=== PATIENT | male | born 1950 | race Caucasian/White ===

== ENCOUNTER 2016-12-07 21:18 | Observation (INO) | payer MEDICARE, OTHER ==
--- NOTE | ~2016-12-07 | CN ---
Consultation Report [address] [place]. [address] NAME: CURLY SHETTY : 46 STATUS : ADM Jeanie PAT#: [id number] AGE: 66 ADM/REG DATE : 12/07/16 MR#: [id number] REPORT SERV DATE: 12/08/16 DICTATED BY: JOHN ESTRADA DATE: 12/08/16 REPORT STATUS : Draft TRANSCRIBED BY: MODL DATE: 12/08/16 CARDIOLOGY CONSULTATION DATE OF CONSULTATION: HISTORY OF PRESENT ILLNESS: The patient is a 66-year-old white male with a history of four- vessel bypass surgery [address] Bran Arechiga. The patient now presents with fleeting anterior chest pain, worsened by movement of his torso. Apparently, he had onset of this discomfort after power washing house yesterday. He has no nausea, vomiting, or diaphoresis. PAST MEDICAL HISTORY: Remarkable for coronary artery disease, hyperlipidemia, essential hypertension, type 2 diabetes, and COPD. SOCIAL HISTORY: The patient continues to smoke, half pack of cigarettes a day. FAMILY HISTORY: Positive for coronary disease. REVIEW OF SYSTEMS: The patient has cough, wheeze, sputum production, vomiting, diarrhea, or dysuria. PHYSICAL EXAMINATION: GENERAL: The patient is in no acute distress. HEENT: Unremarkable. NECK: Shows no jugular venous distention with good carotid upstroke. CHEST: Clear. CARDIOVASCULAR: The PMI is not displaced. S1 is normal. S2 is narrowly split. No gallop is present. ABDOMEN: Soft, nontender with normal bowel sounds. EXTREMITIES: Show no cyanosis, clubbing, or edema. SKIN: Warm and dry with no pallor or icterus. NEURO/PSYCH: The patient is oriented x3 with appropriate affect. IMAGING: EKG shows sinus rhythm, right bundle-branch block, and a probable inferior scar. Troponin is negative x2. IMPRESSION: 1. Atypical chest pain in the patient with known coronary artery disease. 2. History of coronary artery bypass surgery with multiple risk factors. 3. Type 2 diabetes. 4. Hypertension. 5. Hyperlipidemia. 6. Tobacco abuse. Consultation Report [address] [place]. [address] NAME: CURLY SHETTY : 46 STATUS : ADM Jeanie PAT#: [id number] AGE: 66 ADM/REG DATE : 12/07/16 MR#: [id number] REPORT SERV DATE: 12/08/16 DICTATED BY: JOHN ESTRADA DATE: 12/08/16 REPORT STATUS : Draft TRANSCRIBED BY: YOKO DATE: 12/08/16 RECOMMENDATION: The patient is refusing to stay for nuclear scan as an inpatient. We will arrange an outpatient nuclear perfusion scan at [facility] (the patient lives in [place] and wishes to have it there). Thank you very much for this consultation. PATTI/YOKO John Estrada M.D., F.A.C.C. / [id number] CC: Malcolm Samuels M.D.
--- NOTE | ~2016-12-07 | DS ---
Discharge Summary [facility] [address] [place]. [address] NAME: CURLY SHETTY : 46 STATUS : ADM Jeanie PAT#: [id number] AGE: 66 ADM/REG DATE : 12/07/16 MR#: [id number] REPORT SERV DATE: 12/08/16 DICTATED BY: ZORA JAUREGUI DATE: 12/08/16 REPORT STATUS : Draft TRANSCRIBED BY: MODL DATE: 12/08/16 ADMISSION DATE: 12/07/2016 DISCHARGE DATE: 12/08/2016 FINAL HOSPITAL DIAGNOSES: 1. Chest pain. 2. History of coronary artery disease. 3. Diabetes. 4. Hypertension. 5. Hyperlipidemia. CONSULTATIONS: Dr. Estrada. PROCEDURES: None. CURRENT PHYSICAL FINDINGS AND HPI: Please see dictated H and P by Dr. Samuels. In brief, the patient is a 66-year-old male, who presented with chest pain, somewhat atypical given his positional and reproducible nature, but high risk given his previous history of coronary artery disease with past intervention for followup the past 15 years. He presented with complaint of chest pain, was admitted overnight for observation. Serial EKGs and troponins were negative. The patient was unwilling to stay for cardiac stress test on Friday, was concerned about doing anything other than a treadmill stress test with his history of COPD, was absolutely refusing to undergo cardiac cath if necessary. The patient was seen in consultation by Dr. Estrada and was agreeable after that consultation for outpatient stress test and follow up with Dr. Estrada. The patient was given numerous opportunities to stay and receive full diagnostic evaluation, however, he respectively declined, therefore, he is felt stable for discharge today with outpatient cardiac followup. MEDICATIONS: Altace 2.5 one per day, Zocor 40 one per day, Spiriva inhaler, Advair Diskus 250/50 b.i.d., Singulair 10, Prilosec 20, aspirin 81, Tradjenta 2.5, Coreg 6.25 b.i.d., Celebrex 200, Flonase nasal spray, DuoNeb inhaler, albuterol MDI. DICTATED BY: Erica Kerr/YOKO Zora Jauregui M.D. / [id number] CC: Malcolm Samuels M.D.
--- NOTE | ~2016-12-07 | HP ---
History And Physical [facility] [address] [facility] [address]. [address] NAME: CURLY RUBIO : 46 STATUS : ADM Jeanie PAT#: [id number] AGE: 66 ADM/REG DATE : 12/07/16 MR#: [id number] REPORT SERV DATE: 12/08/16 DICTATED BY: DATE: REPORT STATUS : Draft TRANSCRIBED BY: MODL DATE: 12/07/16 DATE OF ADMISSION: 12/07/2016 The patient is admitted to the [facility] Hospitalist Service. CHIEF COMPLAINT: Intermittent chest pain for three days. HISTORY OF PRESENT ILLNESS: Mr. Rubio is a 66-year-old white male transferred from [facility] where he was evaluated earlier today by Dr. Suly Stevens with a chief complaint of chest pain. The patient reports that he has been having intermittent chest pain over the past three days. Symptoms began after pressure washing. He states that the pain is primarily around his ribs bilaterally and worsened with any type of twisting movement. There is also a component of pain just underneath his sternum, worsened with any type of abdominal flexion. The chest pain is not associated with exertion and is not coming on at rest, it is only with a twisting motion primarily. He denies any associated shortness of breath different than baseline (COPD). He has not had any associated nausea, vomiting, dyspepsia, claudication, or radiation of his chest pain. 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 He denies any recent symptoms of unstable angina or exertional intolerance. Troponin at the outside facility was negative and EKG demonstrates nonspecific changes, primarily ST depression and inverted T-waves in the lateral leads with an incomplete right bundle-branch block. There are no priors for comparison. Chest x-ray there was negative as well with the exception of COPD changes. The patient is currently chest pain free and asking when he will be able to go home. The patient was chest pain free during his evaluation at [facility] as well and received only aspirin prior to transfer. REVIEW OF SYSTEMS: Full 14-point review of systems is negative except as dictated in the history of present illness. Primary care provider is Dr. Ervin Walters and the patient sees tax processor Dr. Molina in [place]. PAST MEDICAL HISTORY: Includes: 1. Coronary artery disease with myocardial infarction, stents, and a CABG approximately 15 years ago with no cardiology followup since then. The patient previously saw Dr. Carmichael. History And Physical [address] [address] NAME: CURLY RUBIO : 46 STATUS : ADM Jeanie PAT#: [id number] AGE: 66 ADM/REG DATE : 12/07/16 MR#: [id number] REPORT SERV DATE: 12/08/16 DICTATED BY: DATE: REPORT STATUS : Draft TRANSCRIBED BY: MODKristine DATE: 12/07/16 2. Hypertension. 3. Hyperlipidemia. 4. Vvz-lowiszq-udibotany diabetes mellitus type 2. 5. COPD - dependent on 2.5 L of oxygen at night only. 6. Severe osteoarthritis of bilateral knees. SURGICAL HISTORY: Includes coronary artery bypass grafting 15 years ago and hernia repair. ALLERGIES: CODEINE. HOME MEDICATIONS: 1. Albuterol 200 mcg inhale daily. 2. Spiriva 18 mcg inhale daily. 3. Atrovent 18 mcg daily. 4. Aspirin 81 mg p.o. daily. 5. Omeprazole 20 mg p.o. daily. 6. Ramipril 2.5 mg p.o. daily. 7. Simvastatin 40 mg p.o. daily. 8. Celecoxib 200 mg p.o. daily. 9. Tradjenta 5 mg p.o. daily. 10.Carvedilol one tablet p.o. daily - dose unspecified. 11.Ventolin inhale 200 mcg daily. SOCIAL HISTORY: The patient is , but has a girlfriend. He has one child and his family is very involved in his health. He does continue to smoke, as much as two packs per day in the past, currently between half a pack per day and one pack per day. He has smoked for over 50 years. No history of alcohol or illicit substance use. FAMILY HISTORY: Pertinent for myocardial infarction in his father. It was his cause of , but the patient is unsure at what age his father was diagnosed with coronary artery disease. His mother of complications related to rheumatoid arthritis and congestive heart failure. PHYSICAL EXAMINATION: VITAL SIGNS: Blood pressure 159/77, temperature 97.6, pulse 76, respirations 12, and oxygen saturation is 95% on room air. GENERAL: This is a mildly obese white male, in no acute distress. Alert and oriented in three dimensions. Looks stated age. HEENT: Normocephalic, atraumatic. Pupils are equally round and reactive to light. No scleral icterus. No conjunctival pallor. No sinus tenderness to palpation. No nasal drainage. Oropharynx is moist and pink. No posterior pharyngeal erythema nor exudate. NECK: Supple with no jugular venous distention. No lymphadenopathy. No bruits. No thyromegaly. CARDIOVASCULAR: Regular rate and rhythm with no murmurs, rubs or gallops. CHEST: Reproducible chest wall tenderness at the intercostal margins bilaterally. LUNGS: Clear to auscultation bilaterally with no wheezes, crackles, or rhonchi. ABDOMEN: Soft, obese, nontender, and nondistended with normoactive bowel sounds in four History And Physical [address] [address] NAME: CURLY RUBIO : 46 STATUS : ADM Jeanie PAT#: [id number] AGE: 66 ADM/REG DATE : 12/07/16 MR#: [id number] REPORT SERV DATE: 12/08/16 DICTATED BY: DATE: REPORT STATUS : Draft TRANSCRIBED BY: YOKO DATE: 12/07/16 quadrants. Positive umbilical hernia, easily reducible and nontender. EXTREMITIES: No cyanosis, clubbing, or edema. Suggestion of diminished pulses bilaterally with mottled-looking feet, suggestive of some peripheral arterial disease. Scar from prior vein harvest in the left lower extremity. NEUROLOGIC: Cranial nerves 2 through 12 were tested and are intact. Deep tendon reflexes 2+ bilateral brachioradialis and patellar tendons. Sensation intact to fine touch and temperature in all four limbs. Strength 5/5 in bilateral upper and lower extremities. LABORATORY DATA: Outside facility labs were reviewed. White blood cell count 9.6, hemoglobin 14.9, hematocrit 45.6, MCV 79, and platelets 171. Sodium 139, potassium 4.0, chloride 98, bicarbonate 26, BUN 12, creatinine 0.8, and glucose 117. Liver enzymes, low to normal. Total bilirubin 0.3, magnesium 1.7, INR 1.1. Troponin less than 0.3. IMAGIN. AP and lateral chest x-ray done at outside facility showing chronic emphysematous changes, but no evidence of acute pulmonary process. Normal size heart. 2. EKG shows incomplete right bundle-branch block with ST depressions and inverted T-waves in the lateral leads. Normal sinus rhythm with rate of 80 by my read. IMPRESSION: 1. Atypical chest pain - suspect musculoskeletal. 2. History of coronary artery disease and prior coronary artery bypass grafting. 3. Hypertension. 4. Hyperlipidemia. 5. Mwk-klycyhg-pjbubgahj diabetes mellitus type 2. 6. Chronic obstructive pulmonary disease - nocturnal oxygen dependent. 7. Ongoing tobacco abuse. 8. Osteoarthritis, limiting ability to perform treadmill stress test. PLAN: 1. Observation admission, attending Dr. Malcolm Samuels. 2. Serial cardiac enzymes and EKG. Stress test is recommended if troponin is negative x2. The patient states that he is likely to refuse due to osteoarthritis. The possibility of utilizing pharmacologic medications for the stress test was discussed and he stated he was likely to refuse that as well given what he knew about potential pulmonary side affects. 3. Muscle relaxant was offered to assist in his probable musculoskeletal pain, but patient states he would rather hold off on that and reevaluate in the morning. 4. Risk stratify with hemoglobin A1c and fasting lipid panel. 5. Repeat morning labs. 6. Home medications have been reviewed and reconciled as appropriate. His aspirin and home beta-rolanda are continued as well as statin and home GABRIELLE inhibitor. P.r.n. nitroglycerin and morphine if chest pain recurs. AKS/YOKO History And Physical [address] [address] NAME: CURYL RUBIO : 46 STATUS : ADM Jeanie PAT#: [id number] AGE: 66 ADM/REG DATE : 12/07/16 MR#: [id number] REPORT SERV DATE: 12/08/16 DICTATED BY: DATE: REPORT STATUS : Draft TRANSCRIBED BY: YOKO DATE: 12/07/16 Malcolm Samuels M.D. / [id number] CC: Erica Soliz M.D.
[2016-12-07] MEDS ORDERED: PRILO PO (22:13)
[2016-12-07] MEDS ORDERED: TRADJENTA5 MG PO (22:13)
[2016-12-07] MEDS ORDERED: COREG6 PO (22:13)
[2016-12-07] MEDS ORDERED: ALTA2.5 PO (22:13)
[2016-12-07] MEDS ORDERED: ZOCOR40 PO (22:14)
[2016-12-07] MEDS ORDERED: SPIRIVA INH (22:14)
[2016-12-07] MEDS ORDERED: SINGULAIR1 PO (22:14)
[2016-12-07] MEDS ORDERED: DUONEB INH (22:14)
[2016-12-07] MEDS ORDERED: FLONASE NAS (22:14)
[2016-12-07] MEDS ORDERED: ADVAIR250 INH (22:14)
[2016-12-07] MEDS ORDERED: VENTOLIN HFA INH (22:15)
[2016-12-07] MEDS ORDERED: CELEBREX2 PO (22:15)
[2016-12-07] MEDS ORDERED: HALF81 PO (22:15)
[2016-12-08 06:31] LABS: BASOPHILS 0.6 %; BASOPHILS ABSOLUTE 0.05 10/3/uL (0.0-0.16); EOSINOPHILS 1.8 %; EOSINOPHILS ABSOLUTE 0.16 10/3/uL (0.0-0.53); HEMATOCRIT 46.5 % (40.0-51.0); IMMATURE GRANULOCYTES 0.3 %; IMMATURE GRANULOCYTES ABSOLUTE 0.03 10/3/uL (0.0-0.11); LYMPHOCYTES 23.7 %; LYMPHOCYTES ABSOLUTE 2.08 10/3/uL (0.67-4.30); MANUAL DIFF NO %; MEAN CORPUS HGB CONC 32.3 g/dL (32.0-36.0); MEAN CORPUSCULAR HEMOGLOB 26.4 pg (26.0-34.0); MEAN CORPUSCULAR VOLUME 81.7 fL (80-100); MEAN PLATELET VOLUME 9.9 fL (9.2-13.0); MONOCYTES 9.9 %; MONOCYTES ABSOLUTE 0.87 10/3/uL (0.21-1.20); NEUTROPHILS 63.7 %; NEUTROPHILS ABSOLUTE 5.58 10/3/uL (2.02-8.40); PLATELET COUNT 184 10/3/uL (150-400); RBC DISTRIBUTION WIDTH 15.5 % (12.0-16.0); RED CELL COUNT 5.69 10/6/uL (4.7-6.1); WHITE BLOOD CELLS 8.8 10/3/uL (4.5-10.5)
[2016-12-08 06:48] LABS: BUN (BLOOD UREA NITROGEN) 12 MG/DL (6-23); CALCIUM, SERUM 8.7 MG/DL (8.5-10.4); CHLORIDE, SERUM 108 MMOL/L (96-112); CHOL/HDL RATIO(NOT ORDER) 2.9 (0-5); CHOLESTEROL 129 MG/DL (< 200); CO2 (CARBON DIOXIDE) 28 MMOL/L (24-34); CREATININE 0.74 MG/DL (0.70-1.30); GFR AFRICAN AMERICAN 110 ML/MIN (>=60); GFR NON AFRICAN AMERICAN 95 ML/MIN (>=60); GLUCOSE, SERUM 118 MG/DL (60-99); HDL CHOLESTEROL 44 MG/DL (> 39); LDL CHOLESTEROL 64 MG/DL (< 130); NON-HDL CHOLESTEROL 85 MG/DL (< 160); POTASSIUM, SERUM 4.2 MMOL/L (3.5-5.3); SODIUM, SERUM 139 MMOL/L (135-148); TRIGLYCERIDE 106 MG/DL (< 150); TROPONIN I 0.02 NG/ML (<0.05)
== END 2016-12-08 14:54 | disposition home or self-care (01) ==
LOC: 2SO 21:18
PROVIDERS: Hospitalist
DX: R07.89 Other chest pain (principal); I25.10 Atherosclerotic heart disease of native coronary artery without angina pectoris; I10 Essential (primary) hypertension; I25.2 Old myocardial infarction; E11.9 Type 2 diabetes mellitus without complications; E78.5 Hyperlipidemia, unspecified; E78.00 Pure hypercholesterolemia, unspecified; J44.9 Chronic obstructive pulmonary disease, unspecified; M17.0 Bilateral primary osteoarthritis of knee; F17.210 Nicotine dependence, cigarettes, uncomplicated; Z95.5 Presence of coronary angioplasty implant and graft; Z95.1 Presence of aortocoronary bypass graft; Z98.890 Other specified postprocedural states; Z82.49 Family history of ischemic heart disease and other diseases of the circulatory system; Z82.61 Family history of arthritis; Z88.5 Allergy status to narcotic agent; Z79.82 Long term (current) use of aspirin; Z79.1 Long term (current) use of non-steroidal anti-inflammatories (NSAID); Z79.51 Long term (current) use of inhaled steroids; Z79.84 Long term (current) use of oral hypoglycemic drugs; Z79.899 Other long term (current) drug therapy
CPT/HCPCS: 80048; 80061; 82962; 83036; 83735; 84484; 85025; 93005; 94640; A9270-GY; G0378